=== PATIENT | female | born 1950 | race Caucasian/White ===

== ENCOUNTER 2016-11-17 10:54 | Day surgery (SDC) | payer BC ==
[2016-11-16 11:54] VITALS: BMI 30.4
[2016-11-17] MEDS ORDERED: PROPOFOL 20 ML ONE ×5 (11:49)
[2016-11-17] MEDS ORDERED: LIDOCAINE HCL/PF 2% SDV 5ML VIAL ONE (11:49)
[2016-11-17 12:55] VITALS: TEMP 97.5
[2016-11-17 13:07] VITALS: PULSE 66
[2016-11-17 13:47] VITALS: BP 128/57
--- NOTE | 2016-11-20 12:02 | PATH ---
Surgical Pathology Report Patient Name: DEJA AN [facility]. Rec. #: [id number] /Age/Gender: 1950 (Age: 65) / F Account: [id number] Location: [facility]-ENDOSCOPY Taken: 11/17/2016 Received: 11/17/2016 Reported: 11/20/2016 Physicians: Nargis Griffin M.D. Specimen(s) Received A: BX DISTAL TRANSVERSE COLON POLYP B: RECTAL POLYP Clinical History Screening Colon polyps Final Diagnosis A. COLON, DISTAL TRANSVERSE, POLYP, BIOPSY: FRAGMENTS OF HYPERPLASTIC-TYPE POLYP WITH FEATURES OF SESSILE SERRATED ADENOMA. B. RECTUM, POLYP, POLYPECTOMY: TUBULOVILLOUS ADENOMA. Comment: Cauterized margin of resection appears free of adenoma. Endoscopic correlations are suggested. Electronically Signed Massimo Griffin M.D. Gross Description A. Received in formalin, labeled "biopsy distal transverse colon polyp" are 4 yousif, irregular portions of soft tissue ranging from 0.1-0.3 cm in greatest dimension. The specimens are submitted in toto in one cassette. B. Received in formalin labeled "rectal polyp" is a 1.2 x 0.9 x 0.6 cm yousif, polypoid portion of soft tissue. The base is inked green and the specimen is trisected. The specimen is entirely submitted in one cassette. 11/17/201611/17/2016
== END 2016-11-17 13:47 | disposition home or self-care (01) ==
LOC: JASU-ENDO 10:54
PROVIDERS: ATTEND Internal Medicine Gastroenterology
PROC: 0DBM8ZX Excision of Descending Colon, Via Natural or Artificial Opening Endoscopic, Diagnostic (ICD-10-PCS; 2016-11-17)
PROC: 0DBP8ZX Excision of Rectum, Via Natural or Artificial Opening Endoscopic, Diagnostic (ICD-10-PCS; principal; 2016-11-17 12:00)
DX: Z86.010 Personal history of colon polyps (principal); K62.1 Rectal polyp; K64.8 Other hemorrhoids; D12.4 Benign neoplasm of descending colon
CPT/HCPCS: 88305-TC

== ENCOUNTER 2018-04-10 06:48 | Day surgery (SDC) | payer BC ==
[2018-04-09 14:58] VITALS: BMI 31.9
[2018-04-10 08:40] VITALS: TEMP 97.8
[2018-04-10 09:58] VITALS: BP 127/87; PULSE 64
--- NOTE | 2018-04-11 10:57 | PATH ---
Surgical Pathology Report Patient Name: DEJA AN [facility]. Rec. #: [id number] /Age/Gender: 1950 (Age: 67) / F Account: [id number] Location: [facility]-ENDOSCOPY Taken: 04/10/2018 Received: 04/10/2018 Reported: 04/11/2018 Physicians: Nargis Griffin M.D. Specimen(s) Received A: POLYPS SIGMOID B: BX TRANSVERSE COLON POLYP Clinical History History of adenoma, family history of colon cancer Postoperative diagnosis: Colon polyps Final Diagnosis A. SIGMOID POLYPS, POLYPECTOMY: TUBULAR ADENOMA, TWO FRAGMENTS. SEPARATE FRAGMENT OF HYPERPLASTIC POLYP. B. TRANSVERSE COLON POLYP, POLYPECTOMY: TUBULAR ADENOMA. Electronically Signed Chary Caputo M.D. Gross Description A. Received in formalin, labeled "polyp sigmoid" are 3 yousif, irregular portions of soft tissue ranging from 0.2-0.4 cm. in greatest dimension. The specimens are submitted in toto in one cassette. B. Received in formalin, labeled "polyp transverse colon" is a yousif, irregular portion of soft tissue measuring 0.2 cm. in greatest dimension. The specimen is submitted in toto in one cassette. DL/04/10/2018 saudi04/10/2018
== END 2018-04-10 09:58 | disposition home or self-care (01) ==
LOC: JASU-ENDO 06:48
PROVIDERS: ATTEND Internal Medicine Gastroenterology
PROC: 0DBL8ZX Excision of Transverse Colon, Via Natural or Artificial Opening Endoscopic, Diagnostic (ICD-10-PCS; 2018-04-10)
PROC: 0DBN8ZX Excision of Sigmoid Colon, Via Natural or Artificial Opening Endoscopic, Diagnostic (ICD-10-PCS; principal; 2018-04-10 08:00)
DX: Z12.11 Encounter for screening for malignant neoplasm of colon (principal); Z86.010 Personal history of colon polyps; K57.30 Diverticulosis of large intestine without perforation or abscess without bleeding; D12.5 Benign neoplasm of sigmoid colon; D12.3 Benign neoplasm of transverse colon
CPT/HCPCS: 88305-TC

== ENCOUNTER 2021-04-13 04:59 | Day surgery (SDC) | payer BC, OTHER ==
[2021-04-11 10:46] VITALS: BMI 30.4
[2021-04-13] MEDS ORDERED: KETAMINE HCL 200 MG/20 ML VIAL ONE (07:53)
[2021-04-13 09:37] VITALS: BP 138/80; PULSE 70; TEMP 98
== END 2021-04-13 10:00 | disposition home or self-care (01) ==
LOC: JASU-ENDO 04:59
PROVIDERS: ATTEND Internal Medicine Gastroenterology
PROC: 0DB98ZX Excision of Duodenum, Via Natural or Artificial Opening Endoscopic, Diagnostic (ICD-10-PCS; 2021-04-13)
PROC: 0DB78ZX Excision of Stomach, Pylorus, Via Natural or Artificial Opening Endoscopic, Diagnostic (ICD-10-PCS; 2021-04-13)
PROC: 0DB28ZX Excision of Middle Esophagus, Via Natural or Artificial Opening Endoscopic, Diagnostic (ICD-10-PCS; 2021-04-13)
PROC: 0DB38ZX Excision of Lower Esophagus, Via Natural or Artificial Opening Endoscopic, Diagnostic (ICD-10-PCS; 2021-04-13)
PROC: 0DBN8ZX Excision of Sigmoid Colon, Via Natural or Artificial Opening Endoscopic, Diagnostic (ICD-10-PCS; principal; 2021-04-13 08:00)
DX: Z12.11 Encounter for screening for malignant neoplasm of colon (principal); D12.5 Benign neoplasm of sigmoid colon; K57.30 Diverticulosis of large intestine without perforation or abscess without bleeding; K44.9 Diaphragmatic hernia without obstruction or gangrene; K21.00 Gastro-esophageal reflux disease with esophagitis, without bleeding; K31.7 Polyp of stomach and duodenum; K29.80 Duodenitis without bleeding; K29.50 Unspecified chronic gastritis without bleeding; Z86.010 Personal history of colon polyps; R13.10 Dysphagia, unspecified